=== PATIENT | female | born 1960 | race Caucasian/White ===

== ENCOUNTER → 2016-12-09 | Outpatient (CLI) | payer OTHER ==
--- NOTE | 2016-12-09 12:03 | RADRPT ---
PROCEDURE: XR right knee. CLINICAL INDICATION: Knee pain TECHNIQUE: AP weightbearing, PA weightbearing, lateral weightbearing and sunrise views are availab le for review. COMPARISON: None available FINDINGS: There is severe osteoarthrosis involving the medial tibial femoral compartment and patellofemoral co mpartment and moderate osteoarthrosis involving the lateral tibial femoral compartment. This is asso ciated with joint space narrowing, subchondral sclerosis and osteophytosis. There are calcified loos e bodies in the suprapatellar bursa. There is diffuse osteopenia. No fractures are identified. No osseous lesions are identified. The soft tissues are unremarkable. IMPRESSION: Diffuse osteopenia Severe osteoarthrosis involving the medial tibial femoral compartment and patellofemoral compartment and moderate osteoarthrosis involving the lateral tibial femoral compartment. Calcified loose bodies in the suprapatellar bursa RPTAT: HGDB .Ron Pena MD, MD Date Time Electronically viewed and signed by .Ron Pena MD, on 12/09/2016 12:02 .B/
== END | disposition home or self-care (01) ==
LOC: HKI 11:22
PROVIDERS: ATTEND Orthopaedic Surgery
DX: M17.11 Unilateral primary osteoarthritis, right knee (principal); M25.561 Pain in right knee
CPT/HCPCS: 73564; G0463

== ENCOUNTER → 2016-12-28 | Outpatient (CLI) | payer OTHER ==
[~2016-12-28] MED LIST: ALPR0.5T6 PO; CLON1TAB3 PO; LAMO100T PO; LORA-186 PO; METH10TA3 PO; METHYLPHENIDATE; MOME0.242 IH
--- NOTE | 2016-12-29 10:24 | RADRPT ---
PROCEDURE: Limited x-ray of both lower extremities. CLINICAL INDICATION: Bilateral leg pain. TECHNIQUE: Single frontal view of both lower extremities was obtained from the hips to the calves. COMPARISON: None. FINDINGS: There are moderate degenerative changes of the right hip and mild degenerative changes of the left h ip. There are severe degenerative changes of the right knee and moderate degenerative changes of the lef t knee. IMPRESSION: 1. Degenerative changes of the knees and hips as described above. RPTAT: QQ .Fritz Coronel MD, Date Time Electronically viewed and signed by .Fritz Coronel MD, on 12/29/2016 10:24 .R/
== END | disposition home or self-care (01) ==
LOC: HKI 09:29
PROVIDERS: ATTEND Orthopaedic Surgery
DX: M25.561 Pain in right knee (principal); M17.11 Unilateral primary osteoarthritis, right knee
CPT/HCPCS: 77073; G0463

== ENCOUNTER 2017-01-05 08:15 | Inpatient (IN) | payer OTHER ==
[2017-01-05] VITALS (30 sets, daily range): BP systolic 112–168; BP diastolic 56–89; PULSE 82–108; RESP 16–19; Ht 167.6 cm; Wt 59.0 kg
[~2017-01-05] VITALS: Ht 167.6 cm; Wt 59.0 kg
[~2017-01-05 08:15] MED LIST changes: +BUPIVACAINE LIPOSOME/PF 266 MG/20 ML VIAL INFIL ONE; +CEFAZOLIN 2GM/50 ML (PMX) 50 ML X1 BEFORE INCISION IVPB ONE; +CELECOXIB 400 MG PO X1 DOSE PO ONE; +EXPAREL NOTE (BUPIVICAINE LIPOSOMAL) XX SCH; +PAIN COCKTAIL-CEFUROXIME IRR ONE; +PREGABALIN 300 MG PO X1 PO ONE; +oxyCODONE (CR) 10 MG TAB [oxyCONTIN] X1 DOSE PO ONE; +traMADOL 50 MG TAB X 1 DOSE PO ONE
--- NOTE | 2017-01-05 08:27 | HPN ---
Date/Time of Note Date/Time of Note DATE: 01/05/17 TIME: 08:27 Interval H&P Admission Note Pt. seen H&P reviewed: No system changes No change from H&P on 12/28/16 by NESTOR Pantoja MD January 05, 2017 08:27
[2017-01-05] MEDS ORDERED: ROCURONIUM 50 MG INJ ONE (08:42)
[2017-01-05] MEDS ORDERED: GLYCOPYRROLATE 0.4 MG INJ ONE (08:42)
[2017-01-05] MEDS ORDERED: LIDOCAINE 2% (SDV) 5 ML INJ ONE (08:42)
[2017-01-05] MEDS ORDERED: MIDAZOLAM 1 MG/ML 2 ML INJ ONE (08:42)
[2017-01-05] MEDS ORDERED: NEOSTIGMINE 3 MG/3 ML SYRINGE ONE (08:42)
[2017-01-05] MEDS ORDERED: PROPOFOL 20 ML ONE (08:42)
[2017-01-05] MEDS ORDERED: FENTAnyl 50 MCG/ML VIAL ONE (08:43)
[2017-01-05] MEDS ORDERED: DEXAMETHASONE 4 MG/ML 1 ML INJ ONE (08:44)
[2017-01-05] MEDS ORDERED: ONDANSETRON 4 MG INJ ONE (08:44)
[2017-01-05] MEDS ORDERED: TRANEXAMIC ACID 570 MG in SOD CHLORIDE 0.9% 100 ML IVPB ONE (09:00)
[2017-01-05] MEDS ORDERED: TRANEXAMIC ACID 570 MG in SOD CHLORIDE 0.9% 94.3 ML IV ONE (09:00)
[2017-01-05] MEDS: LACTATED RINGER'S 1,000 ML IV SCH ×4 (09:00→20:59)
[2017-01-05] MEDS ORDERED: BACITRACIN 50000 UNITS INJ ONE (09:06)
[2017-01-05] MEDS ORDERED: VANCOMYCIN 1 GM INJ ONE (09:09)
[2017-01-05] MEDS ORDERED: POLYMYXIN B 500000 UNIT INJ ONE (09:09)
--- NOTE | 2017-01-05 12:22 | PN ---
Date/Time of Note Date/Time of Note DATE: 01/05/17 TIME: 12:18 Assessment/Plan Lines/Catheters IV Catheter Type (from Nrsg): Peripheral IV Assessment/Plan Assessment/Plan Stable in PACU, s/p right TKA -continue Ancef until drain removed -pain meds as needed -ASA/SCDs for DVT prophylaxis -OOB with PT -check AM labs -monitor drain -d/c swain in AM XR of the right knee is pending at this time Subjective 24 Hr Interval Summary Stable in PACU. Moving extremities. Denies pain. Exam/Review of Systems Vital Signs Vitals Vital Signs Date Time Temp Pulse Resp B/P Pulse Ox O2 Delivery O2 Flow Rate FiO2 01/05/17 09:36 98.3 95 18 168/89 98 Exam Free Text/Dictation Hemovac: minimal Dressing dry Incision clean, dry, and intact without redness or drainage Thigh soft 5/5 Quadriceps, Tibialis Anterior, EHL, Gastroc, Soleus, Peroneals Normal sensation Palpable DT/PT, CR <2 sec No distal edema BARNEY WATSON PA-C January 05, 2017 12:22
[2017-01-05] MEDS ORDERED: NACL 0.9% 3 ML SYG IV SCH (12:30)
[2017-01-05] MEDS ORDERED: HYDROCODONE/APAP (5/325) TAB PO PRN (12:30)
[2017-01-05] MEDS ORDERED: ONDANSETRON 4 MG INJ IV PRN ×2 (12:30→13:00)
[2017-01-05] MEDS ORDERED: BISACODYL 10 MG SUPP PR PRN (12:30)
[2017-01-05] MEDS ORDERED: MAGNESIUM HYDROXIDE 30ML CUP PO PRN (12:30)
[2017-01-05] MEDS ORDERED: NA PHOSPHATE/BIPHOS 133 ML ENEMA PR PRN (12:30)
[2017-01-05] MEDS ORDERED: ASPIRIN (EC) 325 MG TAB PO ONE (12:30)
[2017-01-05] MEDS ORDERED: DIPHENHYDRAMINE 25 MG CAP PO PRN (12:30)
--- NOTE | 2017-01-05 12:31 | OPR ---
Date/Time of Note Date/Time of Note DATE: 01/05/17 TIME: 12:30 Operative Report Free Text/Dictation Dictation # [id number] Procedure Date: January 05, 2017 Preoperative Diagnosis Right Knee OA Postoperative Diagnosis Same Operation Performed Right TKA Surgeon: NESTOR CONTRERAS MD assistant clinical nurse manager: BARNEY WATSON PA-C Anesthesia: general Anesthesiologist: DEQUAN SIEGEL MD Tourniquet Time: 60 minutes Estimated Blood Loss: 50 - 100 ml's Specimens Bone and soft tissue Tubes/Drains Hemovac x 1 Complications: None Pt Condition Post Procedure: stable Disposition: PACU NESTOR CONTRERAS MD January 05, 2017 12:31
[2017-01-05] MEDS ORDERED: HYDROmorphONE (0.2 MG/ML) 10ML SYG IV ONE (12:39)
[2017-01-05 12:40] LABS: HEMATOCRIT 36.2 % (37.0-47.0); HEMOGLOBIN 12.3 g/dl (12.0-16.0)
[2017-01-05] MEDS: HYDROmorphONE (0.2 MG/ML) 10ML SYG IV PRN ×2 (12:53→13:40)
[2017-01-05] MEDS: CEFAZOLIN 2 GM/50 ML (PMX) 50 ML IVPB SCH ×2 (12:55→20:55)
[2017-01-05] MEDS: traMADol 50 MG TAB PO SCH ×2 (13:00→17:46)
[2017-01-05] MEDS ORDERED: HYDROmorphONE (0.2 MG/ML) 10ML SYG IV PRN ×2 (13:00)
--- NOTE | 2017-01-05 13:03 | OPR ---
DATE OF OPERATION: 01/05/2017 PREOPERATIVE DIAGNOSIS: Right knee osteoarthritis. POSTOPERATIVE DIAGNOSIS: Right knee osteoarthritis. OPERATION PERFORMED: Right total knee arthroplasty. SURGEON: Nestor Contreras MD RIFLE CASE REPAIRER: KRISTIAN Pretty COMPONENTS USED: DePuy Attune size 6 narrow femoral component, size 4 tibial baseplate, 8 mm polyet hylene insert, and a 35 patellar button. ANESTHESIA: Spinal plus general endotracheal intubation plus periarticular injection. ANESTHESIOLOGIST: Dr. Rogers TOURNIQUET TIME: 60 minutes. ESTIMATED BLOOD LOSS: 50 mL. INTRAVENOUS FLUIDS: 1800 mL crystalloid. SPECIMENS: Bone and soft tissue. DRAINS: Hemovac x1. COMPLICATIONS: None. DISPOSITION: Patient tolerated the procedure well and was taken to the recovery room in stable ltac, located within [facility]. INDICATIONS: The patient is a 56-year-old woman who has had progressive worsening pain in the right knee with radiographic evidence of severe osteoarthritis. She has failed nonsurgical means of geeta tment to control her pain including activity modifications, pain medications, intraarticular injecti ons, and ambulatory assist devices. Despite these measures, she has had worsening pain, and I felt she would benefit from a total knee arthroplasty. I felt the patient would benefit from a total knee arthroplasty. The risks, benefits, and alternatives of the procedure were explained in detail to the patient. I e xplained the risks of the surgery to include but not be limited to, bleeding and possible need for b lood transfusion; infection; pain; stiffness; neurovascular injury with possible numbness, weakness, and/or paralysis anywhere from the knee down to the toes; fracture; instability; dislocation; wear and/or loosening of the prosthesis and possible need for future revision; blood clots; pulmonary emb olism; and anesthetic complications such as heart attack, stroke, GI bleed, pneumonia, and/or . Ample time was allowed for the patient to ask questions, all of which were addressed and answered. The patient understood the risks involved and wished to proceed. Informed consent was signed prior to the procedure. DESCRIPTION OF PROCEDURE: The patient's right knee was initialed with a marking pen in the preopera tive area to identify the correct operative site. The patient was brought to the operating room and transferred from the [facility] to the operating table where a spinal anesthetic was administe red. The patient was then anesthetized and intubated. A Grant catheter was placed. A timeout was p erformed to confirm that the right leg was the correct operative site. The patient was given 2 g of Ancef within one hour prior to the procedure. A tourniquet was placed on the operative proximal th igh. The operative knee and lower extremity were prepped and draped in the usual sterile fashion. The operative lower extremity was elevated and exsanguinated with an Esmarch tourniquet. The proxim al thigh tourniquet was inflated to 300 mmHg. The knee was flexed. A midline incision was made and carried down through the subcutaneous tissue a nd fat with sharp dissection. Limited medial and lateral flaps were raised. A median parapatellar arthrotomy approach was performed. Synovial fluid was normal in color and consistency. The patella was everted and the knee flexed. There were severe tricompartmental osteoarthritic changes noted. A medial release was performed at the joint line to the midcoronal plane. The ACL and PCL and remnan ts of the menisci were excised. The stepped drill was used to open up the femoral canal which was i rrigated and sucked dry. The intramedullary guide delmy was passed up the femur, and the distal cutti ng block was pinned into place for a 5 degree valgus cut, taking 10 mm of bone off distally. The osc illating saw was used to make the cut. The tibia was subluxed anteriorly. The tibial cutoff jig was placed over the center of the talus d istally and over the junction of the medial and middle third of the tibial tubercle proximally. The guide was pinned into place and the oscillating saw was used to make the cut. The tibia was sized. The extension gap was checked and accommodated a 8 mm spacer block with the knee in full extension. There was no varus or valgus instability. At this point, the femur was sized with the posterior referencing guide. Two holes were drilled in 3 degrees of external rotation. The two holes were in line with the transepicondylar axis, perpendi cular to Hoke's line, and in line with the tibial cutoff jig brought up with the knee flexed 90 degrees and tensed with 2 lamina spreaders, suggesting the femoral rotation was correct. The four- in-one cutting block was pinned into place. The anterior and posterior cuts and chamfer cuts were m michelle with the oscillating saw. The flexion gap was checked and accommodated the 8 mm spacer block at 90 degrees. There was no varus or valgus instability, suggesting the flexion and extension gaps we re now equal. The central box was cut out on the femur. The tibia was drilled and punched in proper rotation. Tri al components were placed into position with a trial insert. The patella was cut from 23 mm down to 15 mm and sized. Three holes were drilled and the trial button placed in position. With all the t rials now in place, the knee was taken through range of motion and came to full extension as evidenc ed by the fact that with the foot on my abdomen and axial loading, there was no tendency for the kne e to flex. The knee was able to be flexed to 125 degrees with good patellar tracking with no latera l tilt or subluxation. At this point, I was satisfied with the overall range of motion, stability, and patellar tracking. The trials were removed. The real components were opened. Two bags of cement were mixed, one with and one without premixed antibiotic. The knee was irrigated with antibiotic saline and sucked dry. Once the cement was in a doughy stage, the real components were cemented into place. The knee was held in full extension, and the patellar component was held with a patellar clamp. All excess cemen t was removed with curettes. As the cement was hardening, the synovial/capsular layer was infiltrat ed with a mixture of 150 mg of 0.5% Bupivacaine, 8 mg of Duramorph, 300 mcg of epinephrine, 30 mg of Toradol, 100 mcg of clonidine, 750 mg of cefuroxime and 86 mL of normal saline, followed by an inje ction of 266 mg of liposomal Bupivacaine. A Hemovac drain was placed in the deep portion of the wound and brought out the anterolateral thigh. Once the cement was completely hardened, the trial liner was removed, and the real insert was open ed. The tourniquet was let down, and there was good hemostasis. The knee was then irrigated with a mixture of betadine/saline and then antibiotic saline with pulsatile lavage. The real insert was impacted into the tibia and reduced onto to the femur. The arthrotomy was closed with a few interrupted #1 Ethibond in a [id number] fashion, and then closed in a watertight fashion with a running #2 Stratafix suture. Knee flexion was checked against gravity and came to 125 degrees. The subcutaneous layer was irrigated and closed with 2-0 Stratafi x, and then 3-0 Vicryl and then sherly on the skin. The wound was covered with an occlusive dressi ng, and secured with cast padding and a bias dressing. The drain was secured with 3-0 nylon. The sponge and needle counts were correct at the end of the case. The patient was then awakened, ex tubated, and taken to the recovery room in stable condition. Dictated By: NESTOR CONTRERAS MD EZ/NTS Conf#: [id number] DID#: [id number]
[2017-01-05 13:10] LABS: CREATININE 0.56 mg/dl (0.44-1.00); POTASSIUM 3.6 mmol/L (3.5-5.1)
[2017-01-05 13:32] LABS: CALCIUM 8.8 mg/dl (8.4-10.2)
--- NOTE | 2017-01-05 13:55 | RADRPT ---
PROCEDURE: XR Knee. CLINICAL INDICATION: Status post right knee replacement TECHNIQUE: AP and lateral view of the right knee were obtained. The images reviewed on a PACS wor kstation. COMPARISON: December 09, 2016 FINDINGS: Complete right knee replacement is identified. Prosthetic components are in appropriate position an d alignment. No fractures or destructive lesions are observed. Surgical drain is seen in the knee. Soft tissue air is procedural in nature. IMPRESSION: Status post right knee replacement. Prosthetic components are in appropriate position and alignment . RPTAT: AA .Ziyad Munoz MD, Date Time Electronically viewed and signed by .Ziyad Munoz MD, on 01/05/2017 13:54 .P/
[2017-01-05] MEDS ORDERED: clonAZEPAM 0.5 MG TAB PO PRN (14:00)
[2017-01-05 14:05] LABS: ADD UMIC YES; URINE BILIRUBIN (Dip) NEGATIVE (NEGATIVE); URINE BLOOD (Dip) TRACE (NEGATIVE); URINE COLOR LT. YELLOW (YELLOW); URINE GLUCOSE (Dip) NEGATIVE (NEGATIVE); URINE KETONES (Dip) TRACE (NEGATIVE); URINE LEUKOCYTE ESTERASE (Dip) NEGATIVE (NEGATIVE); URINE NITRITE (Dip) NEGATIVE (NEGATIVE); URINE TOTAL PROTEIN (Dip) NEGATIVE (NEGATIVE); URINE UROBILINOGEN (Dip) 0.2 E.U./dL (0.1-1.0)
--- NOTE | 2017-01-05 14:06 | CONS ---
DATE OF ADMISSION: 01/05/2017 DATE OF CONSULTATION: 01/05/2017 POSTOPERATIVE MEDICAL CONSULTATIVE NOTE Thank you very much for allowing me to evaluate this 56-year-old female who just underwent right tot al knee arthroplasty. HISTORICAL EVENTS: As you well know, this patient has had progressive disabling pain involving her right knee, and for this elected to proceed with surgery. Postoperatively in recovery room she is c omfortable, without cough, wheezing, shortness of breath, nausea, vomiting, abdominal or chest pain. PAST MEDICAL HISTORY: Includes: 1. Mild depression. 2. Three C-sections. 3. Prior right knee surgery x2. 4. Attention deficit disorder. 5. History of asthma. SOCIAL HISTORY: , has 3 children. Her son has autism. Rarely uses alcohol, does not smoke. FAMILY HISTORY: Positive for depression, heart disease and stroke. ALLERGIES: INCLUDE IBUPROFEN AND DEMEROL. MEDICATIONS: 1. Albuterol 1 to 2 puffs q.4 p.r.n. 2. Asmanex 1 to 2 puffs p.r.n. 3. Clonazepam 1 mg as needed p.r.n. 4. Lamotrigine 5 mg b.i.d. 5. Methylphenidate 10 mg t.i.d. p.r.n. 6. Proventil p.r.n. PHYSICAL EXAMINATION: GENERAL: [place] female, in no acute distress. VITAL SIGNS: BP 122/80, pulse 70, respirations are 20. She was afebrile. EYES: Extraocular muscles are full. Nose, mouth and throat were normal. NECK: Supple. There was no jugular venous distention, thyroid enlargement or adenopathy. Carotids are 2+. LUNGS: Clear. HEART: Rhythm regular. No murmur. No third or fourth sound. ABDOMEN: Nontender. Liver and spleen were not palpable. No masses or tenderness were noted. EXTREMITIES: No edema. Calves nontender. IMPRESSION: 1. Stable postop right knee. 2. History of depression/anxiety. Will continue Clonazepam and Lamotrigine. 3. History of asthma. Will have albuterol available if needed. 4. Will evaluate daily for signs and symptoms of thromboembolic disease, despite appropriate DVT pr ophylaxis. Dictated By: ANYI MARTINEZ/GUILLAUME Conf#: [id number] DID#: [id number] CC: NESTOR CONTRERAS MD;*[facility]*
[2017-01-05] MEDS: DOCUSATE SODIUM 100 MG CAP PO SCH ×2 (14:52→20:56)
[2017-01-05] MEDS: PREGABALIN 50 MG CAP PO SCH ×2 (14:53→20:56)
[2017-01-05] MEDS: LORATADINE 10 MG TAB PO SCH (14:53)
[2017-01-05] MEDS: LAMOTRIGINE 100 MG TAB PO SCH (14:53)
[2017-01-05] MEDS ORDERED: TRANEXAMIC ACID 590 MG in SOD CHLORIDE 0.9% 100 ML IVPB ONE ×2 (15:30→18:30)
[2017-01-05] MEDS: PANTOPRAZOLE (EC) 40 MG TAB PO SCH (17:45)
[2017-01-05] MEDS ORDERED: NON-FORMULARY/PATIENT OWN MED (Methylphenidate Hcl* 10 MG) PO SCH (21:00)
[2017-01-05] MEDS ORDERED: METHYLPHENIDATE 5 MG TAB PO SCH (21:00)
[2017-01-06] MEDS: LACTATED RINGER'S 1,000 ML IV SCH ×2 (00:29→05:02)
[2017-01-06] MEDS: HYDROmorphONE 1 MG/ML SYG IV PRN ×2 (05:01→23:59)
[2017-01-06] MEDS: CEFAZOLIN 2 GM/50 ML (PMX) 50 ML IVPB SCH (05:01)
[2017-01-06 05:05] LABS: HEMATOCRIT 31.9 % (37.0-47.0); HEMOGLOBIN 10.3 g/dl (12.0-16.0)
[2017-01-06] MEDS: PANTOPRAZOLE (EC) 40 MG TAB PO SCH ×2 (05:13→17:27)
[2017-01-06] MEDS: traMADol 50 MG TAB PO SCH ×5 (05:13→23:06)
[2017-01-06 05:28] LABS: POTASSIUM 5.1 mmol/L (3.5-5.1)
[2017-01-06 05:30] LABS: CREATININE 0.57 mg/dl (0.44-1.00)
[2017-01-06 05:31] LABS: CALCIUM 9.2 mg/dl (8.4-10.2)
[2017-01-06 06:27] VITALS: BP 121/58; PULSE 86; RESP 18
[2017-01-06 06:56] LABS: ADD UMIC NO; URINE BILIRUBIN (Dip) NEGATIVE (NEGATIVE); URINE BLOOD (Dip) NEGATIVE (NEGATIVE); URINE COLOR LT. YELLOW (YELLOW); URINE GLUCOSE (Dip) NEGATIVE (NEGATIVE); URINE KETONES (Dip) NEGATIVE (NEGATIVE); URINE LEUKOCYTE ESTERASE (Dip) NEGATIVE (NEGATIVE); URINE NITRITE (Dip) NEGATIVE (NEGATIVE); URINE TOTAL PROTEIN (Dip) NEGATIVE (NEGATIVE); URINE UROBILINOGEN (Dip) 0.2 E.U./dL (0.1-1.0)
[2017-01-06 07:00] VITALS: BP 108/54; RESP 18
--- NOTE | 2017-01-06 08:07 | PN ---
Date/Time of Note Date/Time of Note DATE: 01/06/17 TIME: 08:05 Assessment/Plan Lines/Catheters IV Catheter Type (from Nrsg): Peripheral IV Grant in Place (from Nrsg): Yes Assessment/Plan Assessment/Plan Stable POD #1, r/p right TKA -d/c Ancef -pain meds as needed -ASA/SCDs for DVT prophylaxis -OOB with PT -drain removed -check AM labs -discharge planning. Will plan to go home upon discharge Subjective 24 Hr Interval Summary No acute overnight events. Denies significant pain. Did not start PT yesterday. H&H stable. VSS, afebrile. Will plan to go home upon discharge. Exam/Review of Systems Vital Signs Vitals Vital Signs Date Time Temp Pulse Resp B/P Pulse Ox O2 Delivery O2 Flow Rate FiO2 01/06/17 06:27 97.6 86 18 121/58 100 Nasal Cannula 2.0 Intake and Output 01/05/17 01/05/17 01/06/17 15:00 23:00 07:00 Intake Total 1000 ml 1876.8 ml 1800 ml Output Total 440 ml 410 ml 1430 ml Balance 560 ml 1466.8 ml 370 ml Exam Free Text/Dictation Hemovac: 360cc Dressing dry Incision clean, dry, and intact without redness or drainage Thigh soft 5/5 Quadriceps, Tibialis Anterior, EHL, Gastroc, Soleus, Peroneals Normal sensation Palpable DT/PT, CR <2 sec No distal edema Results Result Diagram: 01/06/17 0443 01/06/17 0443 BARNEY WATSON PA-C January 06, 2017 08:07
[2017-01-06] MEDS: ASPIRIN (EC) 325 MG TAB PO SCH ×2 (08:34→20:49)
[2017-01-06] MEDS: DOCUSATE SODIUM 100 MG CAP PO SCH ×2 (08:34→20:49)
[2017-01-06] MEDS: LAMOTRIGINE 100 MG TAB PO SCH (08:35)
[2017-01-06] MEDS: CELECOXIB 200 MG CAP PO SCH (08:35)
[2017-01-06] MEDS: PREGABALIN 50 MG CAP PO SCH ×2 (08:35→20:48)
[2017-01-06] MEDS: LORATADINE 10 MG TAB PO SCH (08:35)
--- NOTE | 2017-01-06 08:56 | CONS ---
Date/Time of Note Date/Time of Note DATE: 01/06/17 TIME: 08:54 Assessment/Plan Assessment/Plan Additional Assessment/Plan 1. Doing well post op left knee replacement. 2. Hx ADD, I rev meds carefully with the pt, she will bring her meds from home 3. Labs rev Consultation Date/Type/Reason Admit Date/Time January 05, 2017 at 08:15 Initial Consult Date Detailed Summary Respiratory: No cough, No shortness of breath Cardiovascular: No chest pain Genitourinary: no complaints Musculoskeletal: bone/joint pain (mild right knee pain) Exam/Review of Systems Vital Signs Vitals Vital Signs Date Time Temp Pulse Resp B/P Pulse Ox O2 Delivery O2 Flow Rate FiO2 01/06/17 07:00 98.6 75 18 108/54 98 01/06/17 06:27 Nasal Cannula 2.0 Intake and Output 01/05/17 01/05/17 01/06/17 15:00 23:00 07:00 Intake Total 1000 ml 1876.8 ml 1800 ml Output Total 440 ml 410 ml 1430 ml Balance 560 ml 1466.8 ml 370 ml Exam Neck: No jvd Respiratory: clear to auscultation Cardiovascular: regular rate and rhythm Gastrointestinal: soft Extremities: No edema (and no calf tend) Results Result Diagram: 01/06/17 0443 01/06/17 0443 Results 24 hrs Laboratory Tests Test 01/05/17 12:20 01/05/17 12:32 01/06/17 04:00 01/06/17 04:43 Urine Color LT. YELLOW LT. YELLOW Urine Clarity CLEAR CLEAR Urine pH 7.5 6.0 Urine Specific [place] 1.010 1.015 Urine Ketones TRACE H NEGATIVE Urine Nitrite NEGATIVE NEGATIVE Urine Bilirubin NEGATIVE NEGATIVE Urine Urobilinogen 0.2 E.U./dL 0.2 E.U./dL Urine Leukocyte Esterase NEGATIVE NEGATIVE Urine Microscopic RBC 2-5 Urine Microscopic WBC 2-5 Urine Hemoglobin TRACE NEGATIVE Urine Glucose NEGATIVE NEGATIVE Urine Total Protein NEGATIVE NEGATIVE Hemoglobin 12.3 10.3 L Hematocrit 36.2 L 31.9 L Sodium Level 139 144 Potassium Level 3.6 5.1 Chloride Level 106 106 Carbon Dioxide Level 25 30 Anion Gap 12 13 Blood Urea Nitrogen 11 8 Creatinine 0.56 0.57 Glucose Level 117 124 Calcium Level 8.8 9.2 Medications Medications Current Medications Lactated Ringer's (Lr) 1,000 ml @ 100 mls/hr Q10H IV ; Start 01/05/17 at 09:00 Miscellaneous Information 1 ea NOTE XX ; Start 01/05/17 at 06:00; Stop 01/08/17 at 05:59 Lamotrigine (Lamictal) 100 mg DAILY PO Last administered on 01/06/17 08:35; Admin Dose 100 MG; Start 01/05/17 at 14:00 Loratadine 10 mg 10 mg DAILY PO Last administered on 01/06/17 08:35; Admin Dose 10 MG; Start 01/05/17 at 14:00 Lactated Ringer's (Lr) 1,000 ml @ 125 mls/hr Q8H IV Last administered on 05:02; Admin Dose 125 MLS/HR; Start 01/05/17 at 12:12 Celecoxib (Celebrex) 200 mg DAILY PO Last administered on 01/06/17 08:35; Admin Dose 200 MG; Start 01/06/17 at 09:00 Tramadol HCl (Ultram) 50 mg Q6 PO Last administered on 01/06/17 05:13; Admin Dose 50 MG; Start 01/05/17 at 13:00; Stop 01/08/17 at 12:59 Acetaminophen/ Hydrocodone Bitart ([place] (5/325)) 1 tab Q4H PRN PO PAIN LEVEL 1 -3; Start 01/05/17 at 12:30 Acetaminophen/ Hydrocodone Bitart ([place] (5/325)) 2 tab Q4H PRN PO PAIN LEVEL 4 -7; Start 01/05/17 at 12:30 Hydromorphone HCl (Dilaudid) 1 mg Q3H PRN IV PAIN LEVEL 8-10 Last administered on 01/06/17 05:01; Admin Dose 1 MG; Start 01/05/17 at 12:30 Ondansetron HCl (Zofran Inj) 4 mg Q6H PRN IV NAUSEA AND/OR VOMITING Last administered on 01/05/17 14:56; Admin Dose 4 MG; Start 01/05/17 at 12:30 Bisacodyl (Dulcolax Supp) 10 mg Q12H PRN LA CONSTIPATION; Start 01/05/17 at 12: 30 Magnesium Hydroxide (Milk Of Mag) 30 ml BID PRN PO CONSTIPATION; Start at 12:30 Sodium Biphosphate/ Sodium Phosphate (Fleet Enema) 133 ml DAILY PRN LA CONSTIPATION; Start 01/05/17 at 12:30 Docusate Sodium (Colace) 100 mg BID PO Last administered on 01/06/17 08:34; Admin Dose 100 MG; Start 01/05/17 at 14:00 Diphenhydramine HCl (Benadryl) 25 mg Q6H PRN PO PRURITUS; Start 01/05/17 at 12: 30 Aspirin (Ecotrin) 325 mg BID PO Last administered on 01/06/17 08:34; Admin Dose 325 MG; Start 01/06/17 at 09:00 Pantoprazole (Protonix Tab) 40 mg BID@06,18 PO Last administered on 01/06/17 05:13; Admin Dose 40 MG; Start 01/05/17 at 18:00 Pregabalin (Lyrica) 50 mg BID PO Last administered on 01/06/17 08:35; Admin Dose 50 MG; Start 01/05/17 at 14:00 Clonazepam (Klonopin) 0.5 mg BID PRN PO ANXIETY; Start 01/05/17 at 14:00 ANYI SEXTON MD January 06, 2017 08:56
[2017-01-06] MEDS ORDERED: ALPRAZOLAM 0.5 MG TAB PO PRN (09:00)
[2017-01-06] MEDS ORDERED: MOMETASONE 0.24 GM INHALER INH PRN (09:00)
--- NOTE | 2017-01-06 09:05 | PDOCDIS ---
Discharge Instructions DIAGNOSIS Discharge Diagnosis: s/p right TKA CONDITION Patient Condition: Good HOME CARE INSTRUCTIONS: Diet Instructions: RegularSpecial Diet: REGULAR ACTIVITY: Activity Restrictions: Slowly Increase Activity Rest between Activity Avoid heavy lifting Do not operate Machinery Do not operate Power Tool Avoid Heavy Housework Keep Limb Elevated Bathing Restrictions: Shower FOLLOW UP/APPOINTMENTS Appointments follow up in the office on 01/16/17 OTHER ORDERS: Other Orders: S/P TKA Physical Therapy: Three times per week at home x 2 weeks Daily in Rehab/SNF WB STATUS: WBAT 1. Strengthening exercises for both upper and un-operated lower extremities. 2. Gait training with front wheeled walker 3. Active range of motion exercises to operative knee. 4. When not working on knee range of motion exercises, distal towel roll under operative ankle/distal calf to promote full extension. 5. DO NOT PUT ANYTHING BEHIND OPERATIVE KNEE!!! 6. Quadriceps and hamstring strengthening. 7. May switch to cane in contra lateral hand 6 weeks after surgery. 8. Physical Therapy can open case if nursing is not available. 9. Use Ice Machine as instructed from date of surgery while at rest 3X/day. 10. Patient requires mobile SCDs to reduce risk of developing DVT following TKA. Patient will use the mobile SCDs for 30 days postoperatively. Bathing assistance by home health aide twice weekly if Medicare patient. Occupational Therapy: Evaluation for assistive devices and ADL training. Wound Care: Keep incision dry & covered with Tegaderm until first visit with Dr. Gutierrez Anticoagulation Orders: Enteric Coated Aspirin 325 mg po bid x 6 weeks from date of surgery Follow-up:Call for an appointment with Dr. Gutierrez in 1 week after discharged from hospital at DME Orders: FWCal, 3-in-1 Commode, Polar ice machine, Mobile SCDs BARNEY WATSON PA-C January 06, 2017 09:05
[2017-01-06] MEDS ORDERED: HYDR-905 PO (09:07)
[2017-01-06] MEDS ORDERED: PANT40TA4 PO (09:07)
[2017-01-06] MEDS ORDERED: PREG50CA PO (09:07)
[2017-01-06] MEDS ORDERED: TRAM50TA2 PO (09:07)
[2017-01-06] MEDS ORDERED: ASPI325T32 PO (09:07)
[2017-01-06 11:00] VITALS: BP 143/65; PULSE 74; RESP 18
[2017-01-06] MEDS: HYDROCODONE/APAP (5/325) TAB PO PRN ×2 (13:49→21:42)
[2017-01-06] MEDS: METHYLPHENIDATE PO SCH (15:38)
[2017-01-06] MEDS: LAMOTRIGINE 25 MG TAB PO SCH (15:48)
[2017-01-06] MEDS ORDERED: METHYLPHENIDATE 5 MG TAB PO SCH (16:00)
[2017-01-06 19:35] VITALS: BP 145/79; RESP 20
[2017-01-06] MEDS: clonAZEPAM 0.5 MG TAB PO PRN (21:41)
[2017-01-07 05:25] LABS: HEMATOCRIT 29.3 % (37.0-47.0); HEMOGLOBIN 9.8 g/dl (12.0-16.0)
[2017-01-07 06:14] LABS: POTASSIUM 4.4 mmol/L (3.5-5.1)
[2017-01-07 06:17] LABS: CREATININE 0.54 mg/dl (0.44-1.00)
[2017-01-07 06:18] LABS: CALCIUM 8.5 mg/dl (8.4-10.2)
[2017-01-07] MEDS: PANTOPRAZOLE (EC) 40 MG TAB PO SCH ×2 (06:49→18:15)
[2017-01-07] MEDS: traMADol 50 MG TAB PO SCH ×4 (06:49→23:29)
[2017-01-07 07:33] VITALS: BP 152/70; RESP 17
[2017-01-07] MEDS: METHYLPHENIDATE PO SCH ×2 (08:33→16:38)
[2017-01-07] MEDS: CONCERTA 36 MG PO SCH (08:34)
[2017-01-07] MEDS: DOCUSATE SODIUM 100 MG CAP PO SCH ×2 (08:35→20:28)
[2017-01-07] MEDS: LAMOTRIGINE 100 MG TAB PO SCH (08:35)
[2017-01-07] MEDS: CELECOXIB 200 MG CAP PO SCH (08:35)
[2017-01-07] MEDS: LORATADINE 10 MG TAB PO SCH (08:35)
[2017-01-07] MEDS: ASPIRIN (EC) 325 MG TAB PO SCH ×2 (08:35→20:27)
[2017-01-07] MEDS: PREGABALIN 50 MG CAP PO SCH ×2 (08:35→20:28)
[2017-01-07] MEDS ORDERED: METHYLPHENIDATE 5 MG TAB PO SCH (09:00)
[2017-01-07] MEDS ORDERED: METHYLPHENIDATE 20 MG TAB PO SCH (09:00)
[2017-01-07] MEDS: HYDROCODONE/APAP (5/325) TAB PO PRN ×3 (09:41→20:27)
--- NOTE | 2017-01-07 11:17 | PN ---
Date/Time of Note Date/Time of Note DATE: 01/07/17 TIME: 11:11 Assessment/Plan Lines/Catheters IV Catheter Type (from Nrsg): Saline Lock Grant in Place (from Nrsg): Yes Assessment/Plan Assessment/Plan POD #2, s/p right TKA -pain meds as needed I encouraged her to ask for pain meds and stay ahead of her pain. She states she will resume them now that she has eaten -ASA/SCDs for DVT prophylaxis -check AM labs and monitor VS -OOB with PT I encouraged her not to refuse PT and patient agreed. She will work with PT today -venous doppler r/o DVT Suspicion low but will obtain image due to patient concerns -dressing changed today incision is clean, dry, intact -discharge planning will plan to discharge home tomorrow with Home Health Subjective 24 Hr Interval Summary No acute overnight events. Having increased pain today. Refused PT and pain meds this morning until evaluated by a provider. Denies f/c. VSS, afebrile. Exam/Review of Systems Vital Signs Vitals Vital Signs Date Time Temp Pulse Resp B/P Pulse Ox O2 Delivery O2 Flow Rate FiO2 01/07/17 07:33 99.4 115 17 152/70 100 01/06/17 11:00 Room Air 01/06/17 06:27 2.0 Intake and Output 01/06/17 01/06/17 01/07/17 15:00 23:00 07:00 Intake Total 950 ml Output Total 900 ml Balance 50 ml Exam Free Text/Dictation Dressing dry Incision clean, dry, and intact without redness or drainage Thigh soft 5/5 Quadriceps, Tibialis Anterior, EHL, Gastroc, Soleus, Peroneals Normal sensation Palpable DT/PT, CR <2 sec No distal edema Results Result Diagram: 01/07/17 0422 01/07/17 042 BARNEY WATSON PA-C January 07, 2017 11:17
--- NOTE | 2017-01-07 11:59 | RADRPT ---
PROCEDURE: US DVT. CLINICAL INDICATION: Right lower extremity pain and swelling. TECHNIQUE: Multiple longitudinal and transverse images of the right lower extremity veins were obt ained with barron scale and color Doppler imaging. 2D grayscale measurements with compression, color Doppler flow, and augmentation was performed. The calf veins were interrogated as well. COMPARISON: No prior studies are available for comparison. FINDINGS: The right common femoral, superficial femoral and popliteal veins are normally compressible througho ut. Color flow demonstrates normal filling of the vessel. Normal waveforms are visualized and ther e is normal response to augmentation. The calf veins are visualized and are equally unremarkable. IMPRESSION: 1. No evidence of a deep vein thrombosis involving the right lower extremity. RPTAT: QQ .Mauro Morales MD, Date Time Electronically viewed and signed by .Mauro Morales MD, on 01/07/2017 11:58 .R/
--- NOTE | 2017-01-07 15:22 | CONS ---
Date/Time of Note Date/Time of Note DATE: 01/07/17 TIME: 15:20 Assessment/Plan Assessment/Plan Additional Assessment/Plan 1. Doing well post op left knee replacement. 2. Hx ADD, I rev meds carefully with the pt, she will bring her meds from home 3. Labs rev expressed concerns about ritalin medications brought from home c/o L LE calf pain, doppler u/s negative continued rehab, stairs tomorrow pain controlled now and kids at bedside in good spirits d/c planning Consultation Date/Type/Reason Admit Date/Time January 05, 2017 at 08:15 Initial Consult Date 24 HR Interval Summary Free Text/Dictation expressed concerns about ritalin medications brought from home c/o L LE calf pain, doppler u/s negative continued rehab, stairs tomorrow pain controlled now and kids at bedside in good spirits Exam/Review of Systems Vital Signs Vitals Vital Signs Date Time Temp Pulse Resp B/P Pulse Ox O2 Delivery O2 Flow Rate FiO2 01/07/17 07:33 99.4 115 17 152/70 100 01/06/17 11:00 Room Air 01/06/17 06:27 2.0 Intake and Output 01/06/17 01/06/17 01/07/17 15:00 23:00 07:00 Intake Total 950 ml Output Total 900 ml Balance 50 ml Exam Constitutional: alert, oriented Head: atraumatic Neck: supple Respiratory: clear to auscultation Cardiovascular: regular rate and rhythm Gastrointestinal: soft Extremities: normal pulses Neurological: [employer] II-XII intact Results Result Diagram: 01/07/17 0422 01/07/17 0422 Results 24 hrs Laboratory Tests Test 01/07/17 04:22 Hemoglobin 9.8 L Hematocrit 29.3 L Sodium Level 140 Potassium Level 4.4 Chloride Level 101 Carbon Dioxide Level 33 H Anion Gap 10 Blood Urea Nitrogen 9 Creatinine 0.54 Glucose Level 96 Calcium Level 8.5 Medications Medications Current Medications Miscellaneous Information 1 ea NOTE XX ; Start 01/05/17 at 06:00; Stop 01/08/17 at 05:59 Lamotrigine (Lamictal) 100 mg DAILY PO Last administered on 01/07/17t 08:35; Admin Dose 100 MG; Start 01/05/17 at 14:00 Loratadine (Claritin) 10 mg DAILY PO Last administered on 01/07/17 08:35; Admin Dose 10 MG; Start 01/05/17 at 14:00 Celecoxib (Celebrex) 200 mg DAILY PO Last administered on 01/07/17 08:35; Admin Dose 200 MG; Start 01/06/17 at 09:00 Tramadol HCl (Ultram) 50 mg Q6 PO Last administered on 01/07/17 12:29; Admin Dose 50 MG; Start 01/05/17 at 13:00; Stop 01/08/17 at 12:59 Acetaminophen/ Hydrocodone Bitart (Tolar (5/325)) 1 tab Q4H PRN PO PAIN LEVEL 1 -3 Last administered on 01/06/17 10:05; Admin Dose 1 TAB; Start 01/05/17 at 12: 30 Acetaminophen/ Hydrocodone Bitart (Tolar (5/325)) 2 tab Q4H PRN PO PAIN LEVEL 4 -7 Last administered on 01/07/17 09:41; Admin Dose 2 TAB; Start 01/05/17 at 12: 30 Hydromorphone HCl (Dilaudid) 1 mg Q3H PRN IV PAIN LEVEL 8-10 Last administered on 01/06/17 23:59; Admin Dose 1 MG; Start 01/05/17 at 12:30 Ondansetron HCl (Zofran Inj) 4 mg Q6H PRN IV NAUSEA AND/OR VOMITING Last administered on 01/05/17 14:56; Admin Dose 4 MG; Start 01/05/17 at 12:30 Bisacodyl (Dulcolax Supp) 10 mg Q12H PRN RI CONSTIPATION; Start 01/05/17 at 12: 30 Magnesium Hydroxide (Milk Of Mag) 30 ml BID PRN PO CONSTIPATION; Start at 12:30 Sodium Biphosphate/ Sodium Phosphate (Fleet Enema) 133 ml DAILY PRN RI CONSTIPATION; Start 01/05/17 at 12:30 Docusate Sodium (Colace) 100 mg BID PO Last administered on 01/07/17 08:35; Admin Dose 100 MG; Start 01/05/17 at 14:00 Diphenhydramine HCl (Benadryl) 25 mg Q6H PRN PO PRURITUS; Start 01/05/17 at 12: 30 Aspirin (Ecotrin) 325 mg BID PO Last administered on 01/07/17 08:35; Admin Dose 325 MG; Start 01/06/17 at 09:00 Pantoprazole (Protonix Tab) 40 mg BID@18 PO Last administered on 01/07/17 06:49; Admin Dose 40 MG; Start 01/05/17 at 18:00 Pregabalin (Lyrica) 50 mg BID PO Last administered on 01/07/17 08:35; Admin Dose 50 MG; Start 01/05/17 at 14:00 Clonazepam (Klonopin) 1 mg HS PRN PO ANXIETY Last administered on 01/06/17 21: 41; Admin Dose 1 MG; Start 01/06/17 at 21:00 Lamotrigine (Lamictal) 50 mg DAILY@15 PO Last administered on 01/06/17 15:48; Admin Dose 50 MG; Start 01/06/17 at 15:00 Mometasone Furoate (Asmanex) 1 puff HS PRN INH WHEEZING; Start 01/06/17 at 09: 00 Alprazolam (Xanax) 0.5 mg TID PRN PO ANXIETY Last administered on 01/06/17 20: 57; Admin Dose 0.5 MG; Start 01/06/17 at 09:00 Patient Own Medication 3 ea DAILY@16 PO Last administered on 01/06/17 15:38; Admin Dose 3 EA; Start 01/06/17 at 16:00 Patient Own Medication 1 ea QAM PO Last administered on 01/07/17 08:33; Admin Dose 1 EA; Start 01/07/17 at 09:00 Patient Own Medication 2 ea QAM PO Last administered on 01/07/17 08:34; Admin Dose 2 EA; Start 01/07/17 at 09:00 Miscellaneous Information Patients own medicat... BID@, XX ; Start 01/06/17 at 16:00 JENELLE DUFF MD January 07, 2017 15:22
[2017-01-07] MEDS: LAMOTRIGINE 25 MG TAB PO SCH (16:38)
[2017-01-07 20:31] VITALS: BP 119/63; RESP 18
[2017-01-07] MEDS: clonAZEPAM 0.5 MG TAB PO PRN (21:54)
[2017-01-08] MEDS: HYDROCODONE/APAP (5/325) TAB PO PRN ×2 (04:43→11:24)
[2017-01-08 05:14] LABS: HEMATOCRIT 28.3 % (37.0-47.0); HEMOGLOBIN 9.4 g/dl (12.0-16.0)
[2017-01-08 05:47] LABS: CREATININE 0.51 mg/dl (0.44-1.00); POTASSIUM 3.9 mmol/L (3.5-5.1)
[2017-01-08] MEDS: traMADol 50 MG TAB PO SCH ×2 (06:24→12:00)
[2017-01-08] MEDS: PANTOPRAZOLE (EC) 40 MG TAB PO SCH (06:24)
[2017-01-08 08:14] VITALS: BP 109/57; RESP 16
--- NOTE | 2017-01-08 08:18 | PN ---
Date/Time of Note Date/Time of Note DATE: 01/08/17 TIME: 08:15 Assessment/Plan Lines/Catheters IV Catheter Type (from Nrsg): Saline Lock Grant in Place (from Nrsg): Yes Assessment/Plan Assessment/Plan Stable POD #3, s/p right TKA -pain meds as needed -ASA/SCDs for DVT prophylaxis -OOB with PT -dressing changed -discharge home today -follow up the office on 01/16/17 Subjective 24 Hr Interval Summary No acute overnight events. Pain improved overall. Progressing with PT. VSS, afebrile. Will plan to discharge home today. Exam/Review of Systems Vital Signs Vitals Vital Signs Date Time Temp Pulse Resp B/P Pulse Ox O2 Delivery O2 Flow Rate FiO2 01/07/17 20:31 98.4 106 18 119/63 97 01/06/17 11:00 Room Air 01/06/17 06:27 2.0 Intake and Output 01/07/17 01/07/17 01/08/17 15:00 23:00 07:00 Intake Total 1200 ml 1250 ml Output Total 1600 ml 1600 ml Balance -400 ml -350 ml Exam Free Text/Dictation Dressing dry Incision clean, dry, and intact without redness or drainage Thigh soft 12/30 Quadriceps, Tibialis Anterior, EHL, Gastroc, Soleus, Peroneals Normal sensation Palpable DT/PT, CR <2 sec No distal edema Results Result Diagram: 01/08/17 0439 01/08/17 0439 BARNEY WATSON PA-C January 08, 2017 08:18
[2017-01-08] MEDS: LORATADINE 10 MG TAB PO SCH (09:02)
[2017-01-08] MEDS: CELECOXIB 200 MG CAP PO SCH (09:02)
[2017-01-08] MEDS: PREGABALIN 50 MG CAP PO SCH (09:02)
[2017-01-08] MEDS: ASPIRIN (EC) 325 MG TAB PO SCH (09:02)
[2017-01-08] MEDS: LAMOTRIGINE 100 MG TAB PO SCH (09:02)
[2017-01-08] MEDS: DOCUSATE SODIUM 100 MG CAP PO SCH (09:02)
[2017-01-08] MEDS: METHYLPHENIDATE PO SCH ×2 (09:03→16:00)
[2017-01-08] MEDS: CONCERTA 36 MG PO SCH (09:03)
[2017-01-08] MEDS: LAMOTRIGINE 25 MG TAB PO SCH (15:00)
--- NOTE | 2017-01-08 19:58 | DS ---
DATE OF ADMISSION: 01/05/2017 DATE OF DISCHARGE: 01/08/2017 CONDITION UPON DISCHARGE: Stable. ADMITTING DIAGNOSIS: Right knee osteoarthritis. DISCHARGE DIAGNOSIS: Status post right total knee arthroplasty. PROCEDURE PERFORMED: Right total knee arthroplasty. HOSPITAL COURSE: This is a 56-year-old female who had previously underwent an open meniscectomy, who presented to clinic initially complaining of right knee pain. Radiographs demonstrated advanced osteoarthritis of the right knee and it was thought she would benefit from a right total knee arthroplasty. On 01/05, the patient was admitted and taken to the operating room where she underwent a right total knee arthroplasty. There were no intraoperative complications. The patient tolerated the procedure well. She was taken to the recovery room in stable condition. Pain was well controlled with oral pain medication. She was started on aspirin and SCDs for DVT prophylaxis. She remained hemodynamically stable and neurovascularly intact throughout her hospital stay. She began physical therapy on postoperative day 1 and was deemed stable for discharge on postoperative day 3. Prior to discharge, the incision was inspected and noted to be clean, dry and intact. Dressing changes were done prior to the patient going home. LABORATORY ANALYSIS: Hemoglobin 9.4, hematocrit 28.3. Chemistry panel was within normal limits. DISCHARGE MEDICATIONS: 1. Inman 7.5/325 mg. 2. Tramadol 50 mg. 3. Aspirin 325 mg. 4. Protonix 40 mg. 5. Lyrica 50 mg. 6. Additionally, the patient is to resume all of her normal home medications. DISCHARGE INSTRUCTIONS: The patient will be discharged home in stable condition. She is to resume a normal diet. She is weightbearing as tolerated on the right lower extremity. She will begin physical therapy with home health. She is discharged home on the medications noted above and is to resume all of her normal home medication. The patient is to call the office or go to the emergency room for any concerns including increased redness, swelling, drainage or any concerns regarding the operation or site of incision. FOLLOW UP: The patient to followup in the office on 01/16/2017. Dictated By: BARNEY ALONSO/GUILLAUME Conf#: [id number] DID#: [id number] [facility]
== END 2017-01-08 17:00 | disposition home health service (06) | DRG 470 ==
LOC: REC 08:15 → MS1 14:30
PROVIDERS: ADMIT Orthopaedic Surgery; ATTEND Orthopaedic Surgery
PROC: 0SRC0J9 Replacement of Right Knee Joint with Synthetic Substitute, Cemented, Open Approach (ICD-10-PCS; principal; 2017-01-05 08:30)
DX: M17.11 Unilateral primary osteoarthritis, right knee (principal); F32.9 Major depressive disorder, single episode, unspecified; F98.8 Other specified behavioral and emotional disorders with onset usually occurring in childhood and adolescence; F41.9 Anxiety disorder, unspecified
CPT/HCPCS: 73560; 80048; 81001; 81003; 84132; 84703; 85014; 85018; 86850; 86900; 86901; 86920; 87081; 87086; 93971; 97116; 97163; 97530; C1776; C9290; J0171; J0690; J0697; J0735; J1100; J1170; J1885; J2250; J2274; J2405; J2710; J3010; J3370; J7120

== ENCOUNTER → 2017-01-16 | Outpatient (CLI) | payer OTHER ==
[~2017-01-16] MED LIST changes: +ASPI325T32 PO; -BUPIVACAINE LIPOSOME/PF 266 MG/20 ML VIAL INFIL ONE; -CEFAZOLIN 2GM/50 ML (PMX) 50 ML X1 BEFORE INCISION IVPB ONE; -CELECOXIB 400 MG PO X1 DOSE PO ONE; -EXPAREL NOTE (BUPIVICAINE LIPOSOMAL) XX SCH; +HYDR-905 PO; -PAIN COCKTAIL-CEFUROXIME IRR ONE; +PANT40TA4 PO; +PREG50CA PO; -PREGABALIN 300 MG PO X1 PO ONE; +TRAM50TA2 PO; -oxyCODONE (CR) 10 MG TAB [oxyCONTIN] X1 DOSE PO ONE; -traMADOL 50 MG TAB X 1 DOSE PO ONE
--- NOTE | 2017-01-16 10:34 | RADRPT ---
PROCEDURE: XR right knee. CLINICAL INDICATION: Knee pain. TECHNIQUE: AP and lateral weightbearing views are available for review. COMPARISON: 01/05/2017 FINDINGS: There is a total knee replacement. There is no evidence of loosening of the prosthesis. There is no evidence of hardware failure. There are anterior skin sherly. The osseous structures are normal in mineralization, architecture and alignment No acute fracture or dislocation is seen.No osseous lesio ns are identified. The soft tissues are unremarkable . IMPRESSION: Unremarkable total knee replacement. RPTAT: HGDB .Ron Pena MD, MD Date Time Electronically viewed and signed by .Ron Pena MD, on 01/16/2017 10:33 .B/
--- NOTE | 2017-01-17 03:15 | HKNOTE ---
DATE OF SERVICE: 01/16/2017 INTERVAL HISTORY: The patient presents today for her first postoperative evaluation. She is now approximately 10 days status post right total knee arthroplasty. She is doing satisfactory overall. She is still having some moderate pain to her right knee as well as limited range of motion. She has been doing physical therapy with home health but is having difficulty with bending her knee. She denies any fevers or chills. She is taking aspirin twice daily as recommended. Additionally, she is taking her pain medicine but discontinued the Neurontin secondary to the drowsiness it was making her feel. She presents today for her first postoperative evaluation. PHYSICAL EXAMINATION: GENERAL: Today, she is alert and oriented x4 and in no acute distress. She is ambulating with a front-wheel walker. EXTREMITIES: Exam of the incision demonstrates it to be clean, dry, and intact. There is no erythema or warmth noted. She does have some mild swelling around the knee. There is no lower extremity edema. Homans sign is negative. Range of motion is limited; however, 0 to 35 degrees. Varus and valgus forces are stable. Compartments were otherwise soft. She is neurovascularly intact distally. IMAGING: X-rays of the right knee were obtained today and reviewed by me. They demonstrate good anatomic alignment with no fractures or dislocations identified. ASSESSMENT: Status post right total knee arthroplasty. PLAN: The sherly were removed today, and Steri-Strips were applied. We stressed the importance of more vigorous physical therapy to improve her range of motion as she is limited postoperatively. A refill of Tramadol 50 mg, quantity #60, was given today. She is to continue aspirin twice daily for DVT prophylaxis. I would like to see her back in 2 weeks for repeat evaluation to check her range of motion. Additionally, outpatient physical therapy referrals have been provided today. Dictated By: BARNEY TOWNSEND for NESTOR ALONSO/GUILLAUME Conf#: [id number] DID#: [id number] MTDD
== END | disposition home or self-care (01) ==
LOC: HKI 09:14
PROVIDERS: ATTEND Orthopaedic Surgery
DX: Z47.1 Aftercare following joint replacement surgery (principal); Z48.02 Encounter for removal of sutures; Z96.651 Presence of right artificial knee joint

== ENCOUNTER → 2017-01-30 | Outpatient (CLI) | payer OTHER | END | disposition home or self-care (01) | LOC: HKI 10:05 | PROVIDERS: ATTEND Orthopaedic Surgery | DX: Z47.1 Aftercare following joint replacement surgery (principal); M17.11 Unilateral primary osteoarthritis, right knee; Z96.651 Presence of right artificial knee joint ==

== ENCOUNTER → 2017-02-15 | Outpatient (CLI) | payer OTHER | END | disposition home or self-care (01) | LOC: HKI 10:30 | PROVIDERS: ATTEND Orthopaedic Surgery | DX: Z47.1 Aftercare following joint replacement surgery (principal); Z96.651 Presence of right artificial knee joint ==

== ENCOUNTER → 2017-02-22 | Outpatient (CLI) | payer OTHER | END | disposition home or self-care (01) | LOC: HKI 11:21 | PROVIDERS: ATTEND Orthopaedic Surgery | DX: Z01.818 Encounter for other preprocedural examination (principal); M17.11 Unilateral primary osteoarthritis, right knee; Z96.651 Presence of right artificial knee joint ==

== ENCOUNTER 2017-03-02 10:57 | Day surgery (SDC) | payer OTHER ==
[~2017-03-02] VITALS: Ht 167.6 cm; Wt 57.7 kg
[2017-03-02] VITALS (14 sets, daily range): BP systolic 123–153; BP diastolic 72–89; PULSE 77–88; RESP 12–20; Ht 167.6 cm; Wt 57.7 kg
[~2017-03-02 10:57] MED LIST changes: +CELECOXIB 400 MG PO X1 DOSE PO ONE; +LACTATED RINGER'S 1,000 ML IV SCH; +PREGABALIN 300 MG PO X1 PO ONE; +oxyCODONE (CR) 10 MG TAB [oxyCONTIN] X1 DOSE PO ONE; +traMADOL 50 MG TAB X 1 DOSE PO ONE
[2017-03-02] MEDS ORDERED: LORA10TA3 PO (11:16)
[2017-03-02] MEDS ORDERED: GABA300C16 PO (11:18)
[2017-03-02] MEDS ORDERED: LAMO25TA PO (11:18)
[2017-03-02] MEDS ORDERED: TRAM50TA2 PO (11:19)
[2017-03-02] MEDS ORDERED: PROPOFOL 20 ML ONE (11:20)
[2017-03-02] MEDS ORDERED: CEFAZOLIN 1 GM INJ ONE (11:20)
[2017-03-02] MEDS ORDERED: DEXAMETHASONE 4 MG/ML 1 ML INJ ONE (11:20)
[2017-03-02] MEDS ORDERED: GLYCOPYRROLATE 0.4 MG INJ ONE (11:20)
[2017-03-02] MEDS ORDERED: NEOSTIGMINE 3 MG/3 ML SYRINGE ONE (11:20)
[2017-03-02] MEDS ORDERED: HYDR-905 PO (11:20)
[2017-03-02] MEDS ORDERED: ROCURONIUM 50 MG INJ ONE (11:20)
[2017-03-02] MEDS ORDERED: MIDAZOLAM 1 MG/ML 2 ML INJ ONE (11:20)
[2017-03-02] MEDS ORDERED: FENTAnyl 50 MCG/ML VIAL ONE ×2 (11:20→13:46)
[2017-03-02] MEDS ORDERED: ONDANSETRON 4 MG INJ ONE (11:20)
--- NOTE | 2017-03-02 12:49 | HPN ---
Date/Time of Note Date/Time of Note DATE: 03/02/17 TIME: 12:48 Interval H&P Admission Note Pt. seen H&P reviewed: No system changes No changes from H&P on 02/23/17 by NESTOR Pantoja MD Mar 02, 2017 12:49
[2017-03-02] MEDS ORDERED: KETOROLAC 30 MG INJ ONE (13:03)
--- NOTE | 2017-03-02 13:26 | OPR ---
Date/Time of Note Date/Time of Note DATE: 03/02/17 TIME: 13:22 Operative Report Procedure Date: Mar 02, 2017 Preoperative Diagnosis Stiff right total knee arthroplasty Postoperative Diagnosis Stiff right total knee arthroplasty Operation Performed Manipulation under anesthesia of right total knee arthroplasty Surgeon: NESTOR CONTRERAS MD [employer] Agent: BARNEY WATSON PA-C Anesthesia: general Anesthesiologist: Ángel Harding M.D. Estimated Blood Loss: minimal Complications: None Pt Condition Post Procedure: stable Disposition: PACU Indications The patient is a 56-year-old woman who recently underwent a right total knee arthroplasty about 6 weeks ago. Despite physical therapy she has struggled to achieve full flexion. She has plateaued at about 105. I feel she would benefit from a manipulation under anesthesia. The risks of the procedure were explained detail to the patient. I explained the risks to include but not be limited to: Pain, stiffness, supracondylar femur fracture, dislocation, dislodgment of the components, and anesthetic complications such as heart attack , stroke, GI bleed, pneumonia, and/or . Ample time was left for the patient to ask questions all of which were addressed and answered. She understood the risks involved and wished to proceed. Informed consent was signed prior to the procedure. Procedure Description The patient's right knee was initialed with a marking pen in the preoperative holding area to identify the correct operative site. She was then brought to the operating room and transferred to the hospital into the operating room table where she was anesthetized and intubated. Once she was fully relaxed I gently manipulated the knee by placing flexion on the knee and can feel few adhesions dissipate. I was able to flex the knee up to 120 as measured with a digital goniometer. A digital photograph was obtained to document the flexion. The patient was then awakened extubated and taken to the recovery room in stable condition NESTOR CONTRERAS MD Mar 02, 2017 13:25
[2017-03-02] MEDS ORDERED: FENTAnyl 50 MCG/ML VIAL IV ONE (14:00)
--- NOTE | 2017-03-02 14:51 | RADRPT ---
PROCEDURE: Right knee radiographs. CLINICAL INDICATION: Right knee pain. Postop. TECHNIQUE: Two views. Frontal and lateral. COMPARISON: 01/16/2017. FINDINGS: There is no fracture or dislocation. Anterior skin sherly have been removed. There is diffuse soft tissue swelling and there is a joint effusion. There is a total right knee arthroplasty which appears satisfactory. There is no lytic or blastic lesion. IMPRESSION: 1. Diffuse soft tissue swelling. Joint effusion. 2. Right total knee arthroplasty. RPTAT: QQ .Fritz Coronel MD, MD Date Time Electronically viewed and signed by .Fritz Coronel MD, MD on 03/02/2017 14:50 .R/
== END 2017-03-02 15:06 | disposition home or self-care (01) ==
LOC: SDS 10:57
PROVIDERS: ATTEND Orthopaedic Surgery
DX: M25.661 Stiffness of right knee, not elsewhere classified (principal); J45.909 Unspecified asthma, uncomplicated
CPT/HCPCS: 27570; 73560; J1100; J1885; J2250; J2405; J3010; J0690; J2710

== ENCOUNTER → 2017-03-13 | Outpatient (CLI) | payer OTHER ==
[~2017-03-13] MED LIST changes: -ALPR0.5T6 PO; -ASPI325T32 PO; -CELECOXIB 400 MG PO X1 DOSE PO ONE; -CLON1TAB3 PO; +GABA300C16 PO; -LACTATED RINGER'S 1,000 ML IV SCH; -LAMO100T PO; +LAMO25TA PO; -LORA-186 PO; +LORA10TA3 PO; -METH10TA3 PO; -METHYLPHENIDATE; -MOME0.242 IH; -PANT40TA4 PO; -PREG50CA PO; -PREGABALIN 300 MG PO X1 PO ONE; -oxyCODONE (CR) 10 MG TAB [oxyCONTIN] X1 DOSE PO ONE; -traMADOL 50 MG TAB X 1 DOSE PO ONE
== END | disposition home or self-care (01) ==
LOC: HKI 13:33
PROVIDERS: ATTEND Orthopaedic Surgery
DX: Z47.1 Aftercare following joint replacement surgery (principal); M25.561 Pain in right knee; M17.11 Unilateral primary osteoarthritis, right knee; Z96.651 Presence of right artificial knee joint

== ENCOUNTER → 2017-04-10 | Outpatient (CLI) | END | disposition home or self-care (01) | DX: Z47.89 Encounter for other orthopedic aftercare (principal); Z96.651 Presence of right artificial knee joint ==